=== PATIENT | female | born 1940 ===

== ENCOUNTER 2021-05-07 02:14 | Outpatient (RCR) | payer BC, SELFPAY ==
[2021-04-30] MEDS: Cyanocobalamin 1000 MCG/ML VIAL IM (13:11)
[2021-04-30] MEDS: IRON SUCROSE COMPLEX 200 MG in Normal Saline 100 ML 440 MG IVPB (13:11)
[2021-04-30] MEDS: Normal Saline Flush 10 ML SYR IVP (13:11)
[2021-05-07] MEDS: Normal Saline Flush 10 ML SYR IVP ×2 (08:04→08:15)
[2021-05-07] MEDS: Cyanocobalamin 1000 MCG/ML VIAL IM (08:15)
[2021-05-07] MEDS: IRON SUCROSE COMPLEX 200 MG in Normal Saline 100 ML 440 MG IVPB (08:15)
== END 2021-05-13 23:59 | disposition home or self-care (01) ==
LOC: INF 02:14
PROVIDERS: Visit Provider Nurse Practitioner Acute Care
DX: D50.9 Iron deficiency anemia, unspecified (principal)
CPT/HCPCS: 96365; 96372; J1756; J3420

== ENCOUNTER 2021-05-21 02:55 | Outpatient (RCR) | payer BC, SELFPAY ==
[2021-05-14] MEDS: Normal Saline Flush 10 ML SYR IVP (08:13)
[2021-05-14] MEDS: Cyanocobalamin 1000 MCG/ML VIAL IM/SC (08:38)
[2021-05-14] MEDS: IRON SUCROSE COMPLEX 200 MG in Normal Saline 100 ML 440 MG IVPB (08:43)
[2021-05-21] MEDS: IRON SUCROSE COMPLEX 200 MG in Normal Saline 100 ML 440 MG IVPB (08:12)
[2021-05-21] MEDS: Normal Saline Flush 10 ML SYR IVP (08:12)
[2021-05-21] MEDS: Cyanocobalamin 1000 MCG/ML VIAL IM/SC (08:12)
== END 2021-06-12 23:59 | disposition home or self-care (01) ==
LOC: INF 02:55
PROVIDERS: Visit Provider Nurse Practitioner Acute Care
DX: D50.9 Iron deficiency anemia, unspecified (principal)
CPT/HCPCS: 96365; 96372; 96375; J1756; J3420